=== PATIENT | female | born 1975 | race Caucasian/White ===

== ENCOUNTER → 2016-03-03 | Outpatient (CLI) | payer OTHER ==
--- NOTE | 2016-03-03 13:22 | US ---
Thyroid Ultrasound Indication: Follow up probably benign nodule in right thyroid gland. Technique: Longitudinal and transverse ultrasound imaging of the thyroid gland. Comparison: Thyroid ultrasound dated February 13, 2014 and January 29, 2015. Findings: The smooth well-circumscribed [id number] hypoechoic nodule in the deep aspect of the r ight mid lobe is unchanged in size and morphology since January 2014. The nodule measures 1.0 x 0.9 x 0.7 cm (previously 1.0 x 0.8 x 0.9 cm in 2014 and 1.0 x 0.9 x 0.6 cm in 2013). No suspicious microc alcifications have developed within the nodule. No new nodule or microcalcifications have developed throughout either lobe. The mildly enlarged diffusely heterogeneous gland is otherwise unchanged with scalloping of the conto ur characteristic of chronic thyroiditis. Right lobe: 5.7 cm in length x 2.6 x 1.9 cm. Left lobe: 5.1 cm in length x 2.4 x 2.0 cm. Isthmus: 0.4 cm AP. No enlarged lymph nodes have developed along the right or left quinn chain. Impression: 1. Probably benign nodule in the posterior right mid thyroid lobe is unchanged since January 2014. 2. Chronic thyroiditis and minimal thyromegaly, unchanged. 3. No new thyroid nodule or lymphadenopathy.
== END ==
LOC: CIMAGING 10:49
PROVIDERS: ATTEND Family Medicine
DX: E04.2 Nontoxic multinodular goiter (principal)
CPT/HCPCS: 76536-PO

== ENCOUNTER → 2017-02-16 | Outpatient (CLI) | payer OTHER | LOC: CIMAGING 10:37 | PROVIDERS: ATTEND Family Medicine | DX: Z12.31 Encounter for screening mammogram for malignant neoplasm of breast (principal); Z80.3 Family history of malignant neoplasm of breast | CPT/HCPCS: G0202 ==

== ENCOUNTER → 2018-03-15 | Outpatient (CLI) | payer OTHER | LOC: CIMAGING 08:33 | PROVIDERS: ATTEND Family Medicine | DX: Z12.31 Encounter for screening mammogram for malignant neoplasm of breast (principal); Z80.3 Family history of malignant neoplasm of breast ==

== ENCOUNTER → 2018-03-22 | Outpatient (CLI) | payer OTHER | LOC: BRMIMAGING 09:11 | PROVIDERS: ATTEND Family Medicine | DX: R92.2 Inconclusive mammogram (principal); Z80.3 Family history of malignant neoplasm of breast ==